=== PATIENT | male | born 1970 | race Caucasian/White ===

== ENCOUNTER 2018-04-05 12:35 | Emergency (ER) | payer SELFPAY ==
--- NOTE | 2018-04-05 15:02 | EDPHY ---
General - History Smoking Status: Former smoker Time Seen by Provider: 04/05/18 14:52 Narrative: CHIEF COMPLAINT: Ankle injury HISTORY OF PRESENT ILLNESS: Patient presents by private vehicle with complaints of right ankle injury. He reports that he was boxing just prior to arrival when he felt a sudden pop in his right ankle posteriorly. He felt a sudden onset of pain in the lower portion of the ankle that was worse when he attempted to walk and pressed down on his foot. It is mild to moderate pain at rest. He felt a swelling in the area that has improved. He has no pain in the bottom of the foot but does have some of the lateral portion in the middle portion of his posterior heel. He denies any fall or blunt trauma to the area. No pain in the right knee or hip. Numbness or tingling. No weakness. No laceration or puncture ESTABLISHED ORTHOPEDIST: None REVIEW OF SYSTEMS: Ten systems reviewed and are negative unless otherwise noted in the HPI PAST MEDICAL HISTORY: Herniated discs PAST SURGICAL HISTORY: No recent surgical history SOCIAL HISTORY: Nonsmoker. 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 Neurological: A&O, light sensory symmetric, great toe strength symmetric Skin: Warm and dry, no rash. No petechiae. No purpura. Multiple tattoos. Extremities: Tenderness of the right lower calf and Achilles tendon with deficit appreciated near the insertion of the Achilles tendon. There is minimal associated tenderness at the insertion site. There is no plantar tenderness of the calcaneus. No midfoot tenderness. No tenderness of the right proximal fibula. Range of motion of the ankle is symmetric with very weak plantar flexion. No evidence of compartment syndrome. Psychiatric: Mood and affect normal DIFFERENTIAL DIAGNOSES: Including but not limited to Achilles strain, Achilles rupture, Achilles enthesopathy, calcaneus injury MDM: 3:10 p.m. None contact injury to the right calf and calcaneus while boxing earlier today. X-ray reveals possible Achilles rupture versus calcaneus injury. He does have examination suggest Achilles tear. I will consult Orthopedics. 3:15 p.m. Case discussed with orthopedist Dr. Hobson. He recommends no further imaging. He recommends clinical management with posterior splint, crutches and follow-up next week. I discussed with the patient he is agreeable to this plan. Splint will be placed. I have offered pain medication he has declined. He prefers ibuprofen. 4:00 p.m. Posterior splint is in place and he is neurovascular intact distally. We discussed nonweightbearing and follow up with Orthopedics for definitive care. We discussed this is likely a surgical injury. We discussed ice and elevation. We discussed short course of pain medication as needed and he has declined. I provided the prescription for him to consider this. I provided the on-call information for him and he is discharged home stable condition Procedure: splint placement Location: Right leg Indication: Right Achilles rupture Consent: Verbal Description: Right posterior short-leg splint placed with cast padding and Ortho Glass splint material. Up to the popliteal space. Tolerated well with CMS intact postprocedure. SUPERVISION: This patient was independently evaluated without direct involvement of or examination by the attending physician. (Pranav Levy) - Objective Vital Signs: Initial Vital Signs Temperature (C) 98.2 F 04/05/18 12:54 Heart Rate 81 04/05/18 12:54 Respiratory Rate 18 04/05/18 12:54 Blood Pressure 147/93 H 04/05/18 12:54 O2 Sat (%) 95 04/05/18 12:54 O2 Delivery Mode Room Air Allergies/Adverse Reactions: No Known Allergies Allergy (Unverified 04/05/18 12:56) Home Medications: Medication Instructions Recorded oxyCODONE HCL/ACETAMINOPHEN 1 each PO Q4-6PRN PRN #15 tablet 04/05/18 [Percocet 5-325 mg Tablet] Medications Given: Discontinued Medications Ibuprofen (Motrin) 600 mg PO EDNOW ONE Stop: 04/05/18 15:33 Last Admin: 04/05/18 16:36 Dose: 600 mg Departure - Departure Disposition: Home, Routine, Self-Care Clinical Impression: Achilles tendon rupture Qualifiers: Encounter type: initial encounter Laterality: right Qualified Code(s): S86.011A - Strain of right Achilles tendon, initial encounter Condition: Good Instructions: Achilles Tendon Rupture (ED), Tendon Rupture (ED) Additional Instructions: 1. Nonweightbearing until seen by Orthopedics for definitive care. 2. Ice and elevate the extremity often 3. Ibuprofen 600 mg every 8 hr as needed for pain and swelling 4. Percocet pain medication as prescribed as needed for breakthrough pain 5. ED precautions for worsening pain, numbness, tingling or weakness Referrals: Jose Raul Hobson MD [Medical Doctor] - As per Instructions Krissy Valenzuela MD [[facility] [place]] - As per Instructions Prescriptions: oxyCODONE HCL/ACETAMINOPHEN [Percocet 5-325 mg Tablet] 1 each PO Q4-6PRN PRN # 15 tablet PRN Reason: Pain, Breakthrough
[2018-04-05] MEDS ORDERED: IBUPROFEN 600 MG TAB PO ONE (15:32)
[2018-04-05 16:41] VITALS: BP 144/94
== END 2018-04-05 16:41 | disposition home or self-care (01) ==
PROC: 2W3QX1Z Immobilization of Right Lower Leg using Splint (ICD-10-PCS; principal; 2018-04-05)
DX: S86.011A Strain of right Achilles tendon, initial encounter (principal); Y93.71 Activity, boxing